=== PATIENT | male | born 1960 | race Caucasian/White ===

== ENCOUNTER 2018-01-01 02:22 | Emergency (ER) | payer BC ==
[~2018-01-01] VITALS: Ht 175.3 cm; Wt 113.6 kg
[2018-01-01 02:30] VITALS: Ht 175.3 cm; Wt 113.6 kg
[2018-01-01] MEDS ORDERED: ZYLOPRIM100 MG PO (02:32)
[2018-01-01] MEDS ORDERED: TOPROL XL50 MG PO (02:33)
[2018-01-01] MEDS ORDERED: TERAZOSIN HCL2 MG PO (02:33)
[2018-01-01] MEDS ORDERED: AZOR 10-40 MG T1 TAB PO (02:33)
[2018-01-01] MEDS ORDERED: SINGULAIR10 MG PO (02:34)
[2018-01-01] MEDS ORDERED: OXYCODONE HCL5 MG PO (02:34)
[2018-01-01] MEDS ORDERED: ASPIRIN81 MG (02:34)
[2018-01-01] MEDS ORDERED: NEURONTIN 300300 MG PO (02:34)
[2018-01-01 02:58] LABS: HEMATOCRIT 32.5 % (42.0-54.0); HEMOGLOBIN 10.9 g/dL (13.5-17.5); LYMPHOCYTES 15.2 % (15-50); MCH 28.4 pg (26.0-34.0); MCHC 33.5 g/dL (31.0-37.0); MCV 84.6 fL (80.0-100.0); NEUTROPHILS 72.9 % (40-80); PLATELET COUNT 279 10x3/uL (130-400); RBC 3.84 10x6/uL (4.20-6.10); RDW 13.3 % (11.5-14.5); WBC 11.7 10x3/uL (4.8-10.8)
[2018-01-01 03:11] LABS: ALBUMIN 3.1 g/dL (3.4-5.0); ALKALINE PHOSPHATASE 60 U/L (46-116); ALT (SGPT) 21 U/L (10-68); BILIRUBIN - TOTAL 0.34 mg/dL (0.2-1.3); CALC OSMOLALITY 277 mosm/kg (275-300); CALCIUM 8.8 mg/dL (8.5-10.1); CARBON DIOXIDE 24.5 mmol/L (21.0-32.0); CHLORIDE - SERUM 103 mmol/L (98-107); CREATININE - SERUM 1.4 mg/dL (0.6-1.3); GLUCOSE 143 mg/dL (74-106); POTASSIUM - SERUM 4.2 mmol/L (3.5-5.1); PROTEIN - SERUM 7.6 g/dL (6.4-8.2); SODIUM 137 mmol/L (136-145); UREA NITROGEN 19 mg/dL (7-18); eGFR NON AFRICAN AMERICAN 56 mL/min (90-120)
[2018-01-01 03:14] LABS: LIPASE 176 U/L (73-393)
[2018-01-01 03:16] LABS: TROPONIN-I < 0.017 ng/mL (0.000-0.060)
[2018-01-01 03:19] LABS: APPEARANCE HAZY (CLEAR); COLOR YELLOW (YELLOW)
[2018-01-01 03:20] LABS: BACTERIA NONE SEEN /hpf (NONE SEEN); BILIRUBIN NEGATIVE (NEGATIVE); EPITHELIAL CELLS NSEEN /hpf (0-5); GLUCOSE NEGATIVE (NEGATIVE); KETONE NEGATIVE (NEGATIVE); NITRITE NEGATIVE (NEGATIVE); PROTEIN NEGATIVE (NEGATIVE); RED CELLS - URINE >50 /hpf (0-5); SPECIFIC GRAVITY 1.025 (1.005-1.020); UROBILINOGEN NORMAL (NORMAL); WHITE CELLS - URINE 0-5 /hpf (0-5)
[2018-01-01] MEDS ORDERED: HYDROCODONE-APA1 TAB PO (03:33)
[2018-01-01] MEDS ORDERED: FLOMAX0.4 MG PO (03:33)
[2018-01-01 04:02] VITALS: BP 139/89
== END 2018-01-01 04:02 | disposition home or self-care (01) ==
LOC: D.ER 02:22
PROVIDERS: Family Medicine
DX: N20.1 Calculus of ureter (principal); R11.2 Nausea with vomiting, unspecified